=== PATIENT | female | born 1975 | race Hispanic/Latino ===

== ENCOUNTER 2019-08-07 05:37 | Observation (INO) | payer OTHER ==
[2019-08-05 10:07] LABS: EOSINOPHILS # (AUTO) 0.1 (0.0-0.4); EOSINOPHILS % 3.9 % (0.0-6.0); HEMATOCRIT 37.9 % (34.2-44.1); HEMOGLOBIN 12.6 g/dL (12.0-16.0); LYMPHOCYTES # (AUTO) 0.9 (1.0-3.2); MEAN CORPUSCULAR HEMOGLOBIN 30.6 pg (28-32); MEAN CORPUSCULAR HGB CONC 33.2 g/dL (31-35); MONOCYTES # (AUTO) 0.3 (0.2-0.8); MONOCYTES % 14.4 % (4.4-11.3); NEUTROPHILS # (AUTO) 0.6 (2.1-6.9); NEUTROPHILS % 34.1 % (38.7-80.0); PLATELET COUNT 331 x10e3/uL (140-360); RED BLOOD COUNT 4.12 x10e6/uL (3.6-5.1); RED CELL DISTRIBUTION WIDTH 12.9 % (11.7-14.4)
[2019-08-05 10:16] LABS: BLOOD UREA NITROGEN 13 mg/dL (7-26); BUN/CREATININE RATIO 19 (6-25); CALCIUM 10.2 mg/dL (8.4-10.2); CARBON DIOXIDE 26 mmol/L (22-29); CHLORIDE 105 mmol/L (98-107); CREATININE, SERUM 0.67 mg/dL (0.57-1.11); EST GLOMERULAR FILTRATION RATE > 60 ML/MIN (60-); GLUCOSE 120 mg/dL (74-118); SODIUM 140 mmol/L (136-145)
[2019-08-05 10:34] LABS: INR 0.92; PROTHROMBIN TIME 12.9 seconds (11.9-14.5)
[2019-08-05 10:35] LABS: PARTIAL THROMBOPLASTIN TIME 32.7 seconds (23.8-35.5)
--- NOTE | 2019-08-05 10:42 | Diagnostic Imaging Report ---
Exam: Chest radiograph Clinical History: Preoperative clearance Findings: The cardiomediastinal silhouette and lungs are normal. The regional skeleton and soft tissue are unremarkable. There is no evidence of pleural effusion or pneumothorax. Impression: No radiographic evidence of acute cardiopulmonary disease. Signed by: Dr. Da Manzanares MD on 08/05/2019 10:38 AM
[2019-08-05 12:11] LABS: EOSINOPHILS % (MANUAL) 3 % (0-7); LYMPHOCYTES % (MANUAL) 57 % (19-48); MONOCYTES % (MANUAL) 6 % (3.4-9.0); NEUTROPHILS % (MANUAL) 33 % (40-74); PLATELET ESTIMATE ADEQUATE; PLATELET MORPHOLOGY COMMENT NORMAL; RBC MORPHOLOGY COMMENT NORMAL
[2019-08-07] VITALS (7 sets, daily range): BP systolic 123–182; BP diastolic 69–86
[~2019-08-07] VITALS: Ht 154.9 cm; Wt 100.7 kg
[~2019-08-07 05:37] MED LIST: ALEVE220 M1 PO; ARMOUR THYROID60 MG PO; ESTRADIOL1 MG PO; FOLIC ACID1 MG PO; GABAPENTIN100 MG PO; GLYBURIDE-METF1 EACH PO; JANUMET XR 1001 EACH PO; LISINOPRIL2.5 MG PO; LOESTRIN FE 1-1 EACH PO; MELATONIN3 MG PO; METFORMIN HCL500 MG PO; METHOTREXATE2.5 MG PO; NABUMETONE500 MG PO; OMEPRAZOLE40 MG PO; PANTOPRAZOLE SO40 MG PO; PAROXETINE HCL20 MG PO; SIMVASTATIN20 MG PO; SYNTHROID PO; VICTOZA 2-0.6 MG/0.1 SC; XYZAL5 MG PO
--- OUTSIDE RECORDS SUMMARY | 2019-08-07 05:39 | XMS REPORT ---
Author Author [facility] Address Unknown Phone Unavailable Care Team Providers Care Healthcare Marketer Name Role Phone MIREYA LINDSEY Unavailable Unavailable Payers Payer Name Policy Type Policy Number Effective Date Expiration Date Problems This patient has no known problems. Allergies, Adverse Reactions, Alerts Allergy Name Allergy Type Status Severity Reaction(s) Onset Date Inactive Date Treating Clinician Comments Tetracyclines DA Active MO 2018-09-16 00:00:00 hydrocodone DA Active MO 2018-09-16 00:00:00 acetaminophen DA Active SV 2018-09-16 00:00:00 minocycline DA Active MO 2018-09-16 00:00:00 Medications This patient has no known medications. Results Test Description Test Time Test Comments Text Results Atomic Results Result Comments CHEST 2 VIEWS 2019-08-05 10:38:00 [facility] [address] [place] [address] Patient Name: HAYDEN CROOK MR #: [id number] : 1975 Age/Sex: 43/F Req #: [id number] Adm Physician: Ordered by: MIREYA LINDSEY MD Report #: [id number] Location: OR Room/Bed: Procedure: [id number] DX/CHEST 2 VIEWS Exam Date: 08/05/19 Exam Time: 939 REPORT STATUS: Signed Exam: Chest radiograph Clinical History: Preoperative alberta arance Findings: The cardiomediastinal silhouette and lungs are normal. The regional skeleton and soft tissue are unremarkable. There is no evidence of pleural effusion or pneumothorax. Impression: No radiographic evidence of acute cardiopulmonary disease. Signed by: Dr. Da Manzanares MD on 08/05/2019 10:38 AM Dictated By: YULY MANZANARES MD 1038 Transcribed By: NILSA on 08/05/19 1038 COPY TO: MIREYA LINDSEY MD SURGICAL SPECIMENS 2019-02-01 15:28:00 RUN DATE: 02/01/19 [facility] *LIVE* PAGE 1 RUN TIME: 1529 Specimen Inquiry RUN USER: INTERFACE PATIENT: HAYDEN CROOK LOC: EDDIE #: [id number] AGE/SX: 43/F ROOM: RE01/29/19REG DR: Juan Carlos Medrano MD : 75 BED: DIS: STATUS: PRE REF TLOC: SPEC #: [id number] RECD: 01/30/19 STATUS: YANNICK BIANCHI #: [id number] SUSANNAH: 01/30/[address]: Juan Carlos Medrano MD ENTERED: 02/01/19 SP TYPE: SURG SPEC OTHR DR: No Primary or Family PhysicianORDERED: LEVEL 4 CODES: [id number] - BREAST, NOS COPIES TO: No Primary or Family Physician Juan Carlos Medrano MD [address] [place] [address] [address] [place] [address] PROCEDURES: LEVEL 4 (Incomplete) TISSUES: 1. BREAST, NOS - Breast, left, 4:00, +calc., core bx. 2. BREAST, NOS - Breast, left, 4:00, -calc., core bx. FINAL DIAGNOSIS Breast, left, 4:00, +/-calc., core bx.: Complex sclerosing papillary lesion with associated microcalcifications and fibrocystic changes. GROSS AND MICROSCOPIC GROSS EXAMINATION: Received is/are the specimen/s designated with the appropriate dimensions and block designation: 1. Breast, left, 4:00, +calc., core bx.: 4 segments of pink-lloyd tissue, measuring up to 0.9 cm. in greatest dimension each (A) jury 2. Breast, left, 4:00, -calc., core bx.: Multiple segments of pink-lloyd tissue, measuring up to 1.5 cm. in greatest dimension each (B). MICROSCOPIC EXAMINATION: Sections reveal complex sclerosing papillary lesion with associated microcalcifications and fibrocystic changes. No ADH, DCIS, LCIS, or invasive carcinoma is identified. POST-OP DIAGNOSIS TRIMARKR CONTINUED ON NEXT PAGE RUN DATE: 02/01/19 [facility] *LIVE* PAGE 2 RUN TIME: 1529 Specimen Inquiry RUN USER: INTERFACE -------SPEC #: [id number] PATIENT: HAYDEN CROOK #[id number] (Continued) PRE-OP DIAGNOSIS Indeterminate calc's REVIEWED BY: XS Signed SIGNATURE ON FILE Vani Curry MD 02/01/19 1528 END OF REPORT SURGICAL SPECIMENS 2018-09-24 09:12:00 RUN DATE: 09/24/18 [facility] *LIVE* PAGE 1 RUN TIME: 912 Specimen Inquiry RUN USER: INTERFACE PATIENT: HAYDEN CROOK LOC: SHELIA U #: [id number] AGE/SX: 42/F ROOM: RE09/18/18REG DR: Juan Carlos Medrano MD : 75 BED: DIS: STATUS: [facility] [place] TLOC: SPEC #: [id number] RECD: 09/20/18 STATUS: YANNICK BIANCHI #: [id number] SUSANNAH: 09/20/[address]: Juna Carlos Medrano MD ENTERED: 09/23/18 SP TYPE: SURG SPEC OTHR DR: Shana Sue MD ORDERED: LEVEL 4 CODES: [id number] - SOFT TISSUES, N [id number] - UTERUS, NOS COPIES TO: Juan Carlos Medrano MD [address] [place] [address] [address] [place] [address] Shana Sue MD [address] [place], [place] [address] PROCEDURES: GM LEVEL 4 (Incomplete) TISSUES: 1. SOFT TISSUES, NOS - Soft tissue, bladder, segment 2. UTERUS, NOS - Uterus, cervix, fallopian tube ovary FINAL DIAGNOSIS Soft tissue, bladder, segment: Endometriosis. Uterus, cervix, bilateral fallopian tubes, left ovary, excision: Chronic cervicitis, squamous metaplasia, nabothian cysts; secretory endometrium, leiomyomata, adenomyosis, fibrous serosal adhesions; left fallopian tube with no atypical cellular features; left ovary with corpus luteum cyst, physiologic cysts and corpora albicantia. GROSS AND MICROSCOPIC GROSS EXAMINATION: Received in formalin labeled endometriosis of the bladder is a 0.7 cm white-lloyd tissue fragment (A). Received in formalin labeled uterus, cervix, left fallopian tube and ovary is a 72 g 7.5 x 5.3 x 3.7 cm uterus with a 3.1 cm in diameter cervix with purple lloyd ectocervix and 0.6 cm cervical os. The serosal surface is purple lloyd and smooth. There is an attached 6 cm in length 1 cm in diameter fallopian tube with fimbriated end and a 3.2 cm in greatest dimension white-lloyd cerebriform ovary is partially cystic. The endometrium is lloyd and lush measuring up to 0.4 cm. The myometrium measures up to 1.2 cm and CONTINUED ON NEXT PAGE ---RUN DATE: 09/24/18 [facility] *LIVE* PAGE 2 RUN TIME: 912 Specimen Inquiry RUN USER: INTERFACE SPEC #: [id number] PATIENT: HAYDEN CROOK #[id number] (Continued) GROSS AND MICROSCOPIC (Continued) contains white whirled nodules measuring up to 1 cm. Submitted (B)-(C) cervix (D)-(G) corpus uteri (H)- (I) left adnexa. MICROSCOPIC EXAMINATION: Sections of the soft tissue from the bladder reveal endometrial glands and stroma with mixed inflammation and hemosiderin laden macrophages. The ectocervical mucosa has normal maturation. The endocervical mucosa has nabothian cysts, areas of squamous metaplasia and associated chronic inflammation. The endometrial glands are dilated with eosinophilic secretions. Benign endometrial glands and stroma are present in the myometrium. The myometrial nodules are composed of bundles of smooth muscle cells with no significant nuclear atypia or mitotic activity. The serosa shows fibrous adhesions. The left fallopian tube is unremarkable. The left ovary shows a corpus luteum cyst, multiple small physioligic cysts and corpora albicantia. POST-OP DIAGNOSIS Endometriosis of bladder, uterine fibroids, left paratubal cyst, adenomyosi PRE-OP DIAGNOSIS Polycystic ovary syndrome, menorrhagia, pelvic pain, adenomyosis, fibroids Signed SIGNATURE ON FILE Rundell,Tc Darrell DE 09/24/18 0912 - END OF REPORT
[2019-08-07] MEDS ORDERED: BUPIVACAINE 0.5%/EPI 30 ML SDV INJ ONE (06:39)
[2019-08-07] MEDS ORDERED: THROMBIN FOR SOLN 5,000 UNIT VIAL ONE ×2 (06:40→07:49)
[2019-08-07] MEDS ORDERED: BACITRACIN 50,000 UNIT VIAL ONE (06:40)
[2019-08-07] MEDS ORDERED: CEFAZOLIN SOD 1 GM/NS 50ML 100 ML IV ONE (06:54)
[2019-08-07] MEDS ORDERED: LIDOCAINE HCL (LTA) 4 ML SOLN ONE (06:59)
[2019-08-07] MEDS ORDERED: ACETAMINOPHEN 1000 MG/100 ML 100 ML IV ONE (06:59)
[2019-08-07] MEDS ORDERED: IBUPROFEN 800MG/ 250ML 250 ML IV ONE (06:59)
--- NOTE | 2019-08-07 07:10 | NUR ---
SPIRITUAL CARE - Pre-Surgery Assessment: Pt in bed. Pt's and mother at bedside. Pt reported supportive attention from family and friends. Intervention: I provided pastoral presence, hospitality, sympathetic listening, and prayer. I acquainted pt with availability of panel machine setter while hospitalized. Outcome: Pt expressed appreciation for visit. No need for follow up indicated at this time. BO LEWIS [employer] Analyst Spiritual Care Department O: [phone] Pager: [phone] ([phone] number calling from)
[2019-08-07] MEDS ORDERED: BUPIVACAINE HCL 0.5% INJ 30 ML VIAL INJ ONE (07:49)
[2019-08-07] MEDS ORDERED: PROMETHAZINE HCL (IM) 25 MG/ML VIAL IM PRN (09:30)
[2019-08-07] MEDS ORDERED: ONDANSETRON HCL INJ 2MG/ML 2ML 2 MG/ML VIAL IV PRN (09:30)
[2019-08-07] MEDS ORDERED: OXYCODONE/ACETAMINOPHEN 5-325 1 EACH TABLET PO PRN (09:30)
[2019-08-07] MEDS ORDERED: MAGNESIUM/ALUMINUM/SIMETHICONE 30 ML UDC PO PRN (09:30)
[2019-08-07] MEDS ORDERED: NABUMETONE 1000 MG PO PRN (09:30)
[2019-08-07] MEDS ORDERED: CEPACOL SORE THROAT LOZENGES PO PRN (09:30)
[2019-08-07] MEDS ORDERED: HYDROMORPHONE 2MG/ML 2 MG/ML ML IV PRN (09:30)
[2019-08-07] MEDS ORDERED: MORPHINE SULFATE 5 MG/ML VIAL IM PRN (09:30)
[2019-08-07] MEDS ORDERED: ZOLPIDEM TARTRATE 5 MG TAB PO PRN (09:30)
[2019-08-07] MEDS ORDERED: ACETAMINOPHEN 325 MG TAB PO PRN (09:30)
[2019-08-07] MEDS ORDERED: CARISOPRODOL 350 MG TAB PO PRN (09:30)
[2019-08-07] MEDS ORDERED: MORPHINE SULFATE INJ 4 MG/ML INJ 1ML IM PRN (10:00)
[2019-08-07] MEDS ORDERED: LACTATED RINGER'S 1,000 ML IV SCH (10:00)
--- NOTE | 2019-08-07 10:01 | NUR ---
RECEIVED REPORT FROM CHERYL IN PACU AWAITING FOR PT TO ARRIVE TO FLOOR
--- NOTE | 2019-08-07 10:15 | NUR ---
RECEIVED PT TO FLOOR [id number] PT IS DENIES PAIN. STATES DISCOMFORT TO NECK, STATES NECK COLLAR IS TOO BIG CALLED RECOVERY TO TRY AND GET A DIFFERENT SIZE AT THIS TIME DRESSING TO THE ANTERIOR NECK IS DRY AND INTACT WITH HEMOVAC IN PLACE SECURED TO GOWN LEFT WRIST AREA IS COVERED WITH DRESSING AND ELIEZER THAT IS ALSO CLEAN AN DRY FINGERS AND WARM TO THE TOUCH , SENSATION TO ALL FINGERS REPORTED PT HAS A RIGHT HAND 20 WITH LR AT 100CCHR. SITE IS CLEAN AND DRY SED AND COMPRESSION STOCKINGS PRESENT WILL CONTINUE TO MONITOR PT CLOSELY, SIDE RAILSX2, BED WHEELS LOCKED INSTRUCTED TO CALL IF NEEDING TO GET UP FAMILY IS AT BEDSIDE
[2019-08-07] MEDS ORDERED: PNEUMOCOCCAL VACCINE POLYVALENT 23 MCG/0.5 ML VIAL IM SCH (10:49)
[2019-08-07] MEDS ORDERED: INFLUENZA VIRUS VAC SPLIT INJ 0.5 ML SYR IM SCH (10:49)
--- NOTE | 2019-08-07 11:31 | NUR ---
REMOVING HYDROCODONE FROM ALLERGIES . PT STATES SHE HAS HAD THIS MEDICINE BEFORE AND IS FINE TAKING IT
--- NOTE | 2019-08-07 12:30 | NUR ---
pt voided into toilet after sx
--- NOTE | 2019-08-07 13:14 | Operative Report ---
DATE OF PROCEDURE: 08/07/2019 SURGEON: Balta Rizo MD PREOPERATIVE DIAGNOSES: 1. 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 2. Left carpal tunnel syndrome. POSTOPERATIVE DIAGNOSES: 1. 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 2. Left carpal tunnel syndrome. PROCEDURES: 1. C5-6 anterior cervical diskectomy and allograft fusion, 16565. 2. Preparation of MTF corticocancellous allograft, 69068. 3. C5-6 anterior cervical plating with Synthes ZPN plate, [id number]. 4. Left carpal tunnel release. ANESTHESIA: General. INDICATIONS: The patient is a 43-year-old woman with rheumatoid arthritis, who presents with C5-6 spondylosis and disk herniation with cervical myelopathy and superimposed left carpal tunnel syndrome. She was taken to the operating room for simultaneous anterior cervical decompression and fusion and left carpal tunnel release. PROCEDURE IN DETAIL: After induction of general anesthesia, the patient was placed on the operating table in supine position. The right side of neck was prepped and draped in sterile fashion. The fluoroscopic C-arm was positioned in cross-table lateral orientation. A small transverse incision was created on the right side of neck superimposed on the C5-6 disk space as determined by fluoroscopy. The platysma was divided in line with the incision. A subplatysmal dissection was carried out and avascular plane of dissection was developed medial to the sternocleidomastoid muscle and was followed medial to the carotid sheath to the anterior border of cervical spine. The deep cervical fascia was opened. The esophagus was retracted to the left. The attachments of longus colli muscles to the anterolateral aspects of vertebral bodies of C5 and C6 were divided. The anterior longitudinal ligament was resected. [place] posts were inserted in C5 and C6, and the [place] distractor was used to distract the disk space. The anterior annulus of this was incised with a #11 blade. The contents of the disk were thoroughly evacuated with angled curettes and pituitary rongeurs. The posterior osteophytes were meticulously drilled with a 2 mm cutting bur on a high-speed drill until they were completely removed. The posterior annulus of the disk, a large amount of herniated disk material, and the posterior longitudinal ligament were resected layer by layer until the dura was fully exposed and decompressed. The medial aspects of the uncinate processes were resected bilaterally to further expose any compressed origins of the corresponding nerve roots. After satisfactory decompression had been achieved, the endplates were prepared for fusion. The disk space was sized and found to be 7 mm in height. A piece of MTF corticocancellous allograft measuring 7 mm in thickness was selected and was loaded onto the corresponding Synthes ZPN plate. The construct was inserted into the C5-6 disk space under distraction and fluoroscopic guidance. The distraction was released and distraction posts were removed. The plate was screwed to the endplates of C5 and C6 with two pairs of 14 x 4.35 mm screws. All screws were locked. The wound was copiously irrigated with bacitracin solution. Hemostasis was achieved with bone wax. A small Hemovac drain was placed over the plate and brought out through a separate stab incision. The platysma was closed with 3-0 Vicryl sutures. The skin was closed with 4-0 Monocryl sutures in subcuticular fashion. Steri-Strips and dressing were applied. The drapes were removed. The left arm was abducted over a hand table. The left hand, wrist, and forearm were prepped and draped circumferentially in sterile fashion. The tourniquet was inflated to 250 mmHg. A small midline incision was created over the median palmar crease of the hand just distal to the distal flexor crease of the wrist. Subcutaneous fat was divided. The transverse carpal ligament was incised with a #15 C blade until the underlying median nerve came into view. As the oceanographer assistant retracted the skin edges, the transverse carpal ligament was divided proximally and distally until the full length of the median nerve was exposed and decompressed within the carpal tunnel. The point of maximal compression of nerve appeared to be about 2 cm distal to the distal flexor crease of the wrist, where the ligament was at its thickest. More distally, the recurrent motor branch of the nerve was preserved within this fat pad. The wound was irrigated with bacitracin solution. Meticulous hemostasis was secured. Retractor was removed. The subcutaneous layer was closed with 3-0 Vicryl sutures and the skin was closed with 3-0 nylon suture in a horizontal mattress fashion. The wound was infiltrated with lidocaine. The hand was wrapped after the tourniquet had been deflated. The patient was awakened, extubated, and taken to the postanesthesia care in stable condition. No intraoperative complications were encountered. Estimated blood loss was 20 mL. Balta Rizo MD PP/JOSE C /[id number]
[2019-08-07] MEDS ORDERED: FENTANYL CITRATE/PF 100MCG/2 ML INJ ONE (15:05)
[2019-08-07] MEDS ORDERED: MIDAZOLAM HCL 2 MG/2 ML VIAL ONE (15:05)
[2019-08-07] MEDS: CEFAZOLIN SOD 1 GM/NS 50ML 50 ML IV SCH (16:12)
[2019-08-07] MEDS: METFORMIN HCL 500 MG TAB PO SCH (16:30)
[2019-08-07] MEDS ORDERED: PROPOFOL IV EMULSION 10 MG/ML 20 ML VIAL ONE (18:44)
[2019-08-07] MEDS ORDERED: DEXAMETHASONE SOD PHOS INJ 4 MG/ML VIAL ONE (18:44)
[2019-08-07] MEDS ORDERED: SEVOFLURANE INHAL SOLN 250 ML PEN BTL ONE (18:44)
[2019-08-07] MEDS ORDERED: ROCURONIUM BROMIDE 10 MG/ML 5ML VIAL ONE (18:44)
[2019-08-07] MEDS ORDERED: ONDANSETRON HCL INJ 2MG/ML 2ML 2 MG/ML VIAL ONE (18:44)
[2019-08-07] MEDS ORDERED: NEOSTIGMINE 5 MG/5ML SYR ONE (18:44)
[2019-08-07] MEDS ORDERED: GLYCOPYRROLATE INJ 1MG/ 5 ML SYR ONE (18:44)
[2019-08-07] MEDS ORDERED: LIDOCAINE HCL 2% LOCAL INJ 5 ML SDV VIAL INJ ONE (18:44)
[2019-08-07] MEDS ORDERED: PAROXETINE HCL 12.5 MG TABSR PO SCH (21:00)
[2019-08-07] MEDS ORDERED: ESTRADIOL 1 MG TAB PO SCH (21:00)
[2019-08-07] MEDS ORDERED: GABAPENTIN 100 MG CAP PO SCH (21:00)
[2019-08-07] MEDS ORDERED: LISINOPRIL 20 MG TAB PO SCH (21:00)
[2019-08-07] MEDS ORDERED: Liraglutide (Victoza 2-Pak) 1.2 MG SC SCH (21:00)
[2019-08-07] MEDS ORDERED: MELATONIN 5 MG TABLET PO SCH (21:00)
[2019-08-07] MEDS ORDERED: ESTRACE PO SCH (21:00)
[2019-08-08] MEDS: CEFAZOLIN SOD 1 GM/NS 50ML 50 ML IV SCH ×2 (00:24→08:58)
[2019-08-08 00:32] VITALS: BP 122/80
[2019-08-08 04:00] VITALS: BP 108/55
[2019-08-08] MEDS ORDERED: LEVOTHYROXINE SODIUM 50 MCG TAB PO SCH (06:00)
--- NOTE | 2019-08-08 06:17 | NUR ---
Patient is laying supine with HOB slightly elevated. Reports feeling better, denies pain at this time. Neck collar in place, Hemovac patency verified. Has scant serosanguineous on tubing only, device has not been filled. Left hand wound dressing is C/D/I. Right IV patent. Patient was able to ambulate with last night. SCD's and [place] were used, but patient took them off to give her legs a break. at bedside. Patient's bed wheels are locked and call light is within reach.
[2019-08-08 07:27] VITALS: BP 116/61
[2019-08-08] MEDS ORDERED: PANTOPRAZOLE SOD 40 MG TABEC PO SCH (07:30)
[2019-08-08] MEDS ORDERED: ONDANSETRON HCL 4 MG ORAL DISINTEGRATING TAB PO PRN (08:30)
[2019-08-08] MEDS: METFORMIN HCL 500 MG TAB PO SCH (08:56)
[2019-08-08] MEDS ORDERED: LORATADINE 10 MG TAB PO SCH (09:00)
[2019-08-08] MEDS ORDERED: ESTRADIOL 1 MG TAB PO SCH (09:00)
[2019-08-08] MEDS ORDERED: FOLIC ACID 1 MG TAB PO SCH (09:00)
[2019-08-08] MEDS ORDERED: PAROXETINE HCL 12.5 MG TABSR PO SCH (09:00)
--- NOTE | 2019-08-08 09:01 | Diagnostic Imaging Report ---
EXAMINATION: C-SPINE 2 VIEWS AP LATERAL INDICATION: Postoperative COMPARISON: None FINDINGS: AP and lateral images of the cervical spine demonstrate postoperative findings of anterior cervical discectomy and fusion at C5-6. Alignment appears anatomic. No unexpected fracture. Vertebral body heights are maintained. Mild thickening of the prevertebral soft tissues is likely postoperative. Surgical drain projects over the anterior neck. The partially visualized lung apices appear clear. IMPRESSION: Anatomic alignment status post anterior cervical discectomy and fusion at C5-6 Signed by: Joseline Armando MD on 08/08/2019 8:58 AM
[2019-08-08 09:15] VITALS: BP 116/61
--- NOTE | 2019-08-08 10:31 | NUR ---
PATIENT'S DRESSING AND HEMOVAC REMOVED, STERI-STRIP INTACT, PATIENT DENIES PAIN AND/OR DISCOMFORT.
[2019-08-08] MEDS ORDERED: NORCO 7.5-3251 EACH PO (10:52)
== END 2019-08-08 11:45 | disposition home or self-care (01) ==
LOC: OR 05:37 → PACU V 09:21 → MED/SURG 10:17
PROVIDERS: ADMIT Neurological Surgery; ATTEND Neurological Surgery
DX: M50.022 Cervical disc disorder at C5-C6 level with myelopathy (principal); M47.12 Other spondylosis with myelopathy, cervical region; G56.02 Carpal tunnel syndrome, left upper limb; Z88.6 Allergy status to analgesic agent; Z88.8 Allergy status to other drugs, medicaments and biological substances; E11.9 Type 2 diabetes mellitus without complications; E66.9 Obesity, unspecified; Z68.41 Body mass index [BMI] 40.0-44.9, adult; K27.9 Peptic ulcer, site unspecified, unspecified as acute or chronic, without hemorrhage or perforation; M19.90 Unspecified osteoarthritis, unspecified site; M06.9 Rheumatoid arthritis, unspecified; M79.7 Fibromyalgia; I10 Essential (primary) hypertension; Z01.812 Encounter for preprocedural laboratory examination; Z79.84 Long term (current) use of oral hypoglycemic drugs
CPT/HCPCS: 20931; 22551; 22845; 36415 ×3; 64721; 71046; 72040; 77003; 80048; 82948 ×2; 85025; 85610; 85730; 86850; 86900; 88304; 93005; G0378 ×2; J0131; J0690 ×2; J1100; J2001; J2250; J2270; J2405; J2704; J3010; J3490; J7121; S0164 ×2

== ENCOUNTER → 2019-09-02 | Outpatient (CLI) | payer OTHER ==
[~2019-09-02] MED LIST changes: +NORCO 7.5-3251 EACH PO
--- NOTE | 2019-09-03 09:52 | Diagnostic Imaging Report ---
EXAMINATION: SPINE CERVICAL AP LAT FLEX EXT INDICATION: Postoperative COMPARISON: None FINDINGS: AP and lateral cervical spine radiographs in neutral, flexion and extension were obtained. The patient is status post anterior cervical discectomy and fusion at C5-6. Alignment appears anatomic and unchanged on flexion and extension views. Vertebral body heights are maintained. No acute osseous injury. Hardware appears intact. Interval decrease in postoperative prevertebral soft tissue thickening. The minimally visualized lung apices appear clear. IMPRESSION: Anatomic alignment status post anterior cervical discectomy and fusion at C5-6. Signed by: Joseline Armando MD on 09/03/2019 9:48 AM
== END ==
LOC: RAD 16:23
PROVIDERS: ATTEND Neurological Surgery
DX: M50.20 Other cervical disc displacement, unspecified cervical region (principal); M43.22 Fusion of spine, cervical region
CPT/HCPCS: 72050

== ENCOUNTER 2023-02-01 06:50 | Observation (INO) | payer OTHER ==
[2023-01-31 13:38] LABS: EOSINOPHILS % 1.7 % (0.0-6.0); HEMATOCRIT 41.1 % (34.2-44.1); HEMOGLOBIN 13.8 g/dL (12.0-16.0); LYMPHOCYTES % 56.1 % (18.0-39.1); MEAN CORPUSCULAR HEMOGLOBIN 31.8 pg (28-32); MEAN CORPUSCULAR HGB CONC 33.6 g/dL (31-35); MEAN CORPUSCULAR VOLUME 94.7 fL (81-99); MONOCYTES # (AUTO) 0.2 (0.2-0.8); NEUTROPHILS # (AUTO) 0.6 (2.1-6.9); NEUTROPHILS % 32.2 % (38.7-80.0); PLATELET COUNT 368 x10e3/uL (140-360); RED BLOOD COUNT 4.34 x10e6/uL (3.6-5.1); RED CELL DISTRIBUTION WIDTH 12.9 % (11.7-14.4)
[2023-01-31 14:02] LABS: INR 0.86; PROTHROMBIN TIME 12.2 seconds (11.9-14.5)
[2023-01-31 14:03] LABS: PARTIAL THROMBOPLASTIN TIME 34.5 seconds (23.8-35.5)
[2023-01-31 14:08] LABS: ANION GAP 14.8 mmol/L (8-16); CALCIUM 10.7 mg/dL (8.4-10.2); CREATININE, SERUM 0.68 mg/dL (0.57-1.11); POTASSIUM 3.8 mmol/L (3.5-5.1)
[~2023-02-01] VITALS: Ht 157.5 cm; Wt 94.3 kg
[~2023-02-01 06:50] MED LIST changes: +CEFAZOLIN SODIUM 2 GM ONE; +CLEOCIN HCL300 MG PO; +CLEOCIN40 GM TOP; +CYCLOBENZAPRINE5 MG PO; +GLYCOPYRROL; +GLYCOPYRROLATE2 MG PO; +HYDROCHLOROTHIA25 MG PO; +LACTATED RINGER'S 1,000 ML ONE; +LIPITOR20 MG PO; +MULTI-VITAMIN1 EACH PO; +SPIRONOLACTONE25 MG PO; +VITAMIN B-121000 MCG PO; +XELJANZ XR11 MG PO
[2023-02-01] MEDS ORDERED: SUGAMMADEX SODIUM 200 MG/2 ML VIAL IV ONE (06:54)
[2023-02-01] MEDS ORDERED: ACETAMINOPHEN 1000 MG/100 ML 100 ML IV ONE (06:54)
[2023-02-01] MEDS ORDERED: LIDOCAINE 1% W/EPINEPHRINE 20 ML VIAL ONE (07:02)
[2023-02-01] MEDS ORDERED: Vancomycin IV 1 GM VIAL ONE (07:02)
[2023-02-01] MEDS ORDERED: THROMBIN FOR SOLN 5,000 UNIT VIAL ONE (07:02)
[2023-02-01] MEDS ORDERED: MORPHINE SULFATE 5 MG/ML VIAL IM PRN (09:45)
[2023-02-01] MEDS ORDERED: ACETAMINOPHEN 325 MG TAB PO PRN (09:45)
[2023-02-01] MEDS ORDERED: PROMETHAZINE HCL (IM) 25 MG/ML VIAL IM PRN (09:45)
[2023-02-01] MEDS ORDERED: ONDANSETRON HCL INJ 2MG/ML 2ML 2 MG/ML VIAL IV PRN (09:45)
[2023-02-01] MEDS ORDERED: ZOLPIDEM TARTRATE 5 MG TAB PO PRN (09:45)
[2023-02-01] MEDS: LACTATED RINGER'S 1,000 ML IV SCH ×2 (09:45→16:51)
[2023-02-01] MEDS ORDERED: CARISOPRODOL 350 MG TAB PO PRN (09:45)
[2023-02-01] MEDS ORDERED: TIZANIDINE HCL 4 MG TAB PO PRN (09:45)
[2023-02-01] MEDS ORDERED: MAGNESIUM/ALUMINUM/SIMETHICONE 30 ML UDC PO PRN (09:45)
[2023-02-01] MEDS ORDERED: ULTRAM 50MG50 MG PO (09:46)
[2023-02-01] MEDS ORDERED: TIZANIDINE HCL4 M1 PO (09:48)
[2023-02-01] MEDS ORDERED: FENTANYL CITRATE/PF 100MCG/2 ML INJ ONE (12:17)
[2023-02-01] MEDS ORDERED: MIDAZOLAM HCL 2 MG/2 ML VIAL ONE (12:17)
[2023-02-01 13:06] VITALS: BP 123/79
[2023-02-01] MEDS ORDERED: POVIDONE IODINE 0.05% 0.05 % ML PO ONE (13:33)
[2023-02-01] MEDS ORDERED: PROPOFOL IV EMULSION 10 MG/ML 20 ML VIAL ONE (13:33)
[2023-02-01] MEDS ORDERED: LIDOCAINE HCL 2% LOCAL INJ 5 ML SDV VIAL INJ ONE (13:33)
[2023-02-01] MEDS ORDERED: ONDANSETRON HCL INJ 2MG/ML 2ML 2 MG/ML VIAL ONE (13:33)
[2023-02-01] MEDS ORDERED: SEVOFLURANE INHAL SOLN 250 ML PEN BTL ONE (13:33)
[2023-02-01] MEDS ORDERED: DIPHENHYDRAMINE HCL INJ 50 MG/ML VIAL ONE (13:33)
[2023-02-01] MEDS ORDERED: DEXAMETHASONE SOD PHOS INJ 4 MG/ML SDV ONE (13:33)
[2023-02-01] MEDS ORDERED: ROCURONIUM BROMIDE 10 MG/ML 5ML VIAL IV ONE (13:33)
[2023-02-01 13:57] VITALS: BP 123/79
[2023-02-01 15:59] VITALS: BP 107/55
[2023-02-01] MEDS: METFORMIN HCL 500 MG TAB PO SCH (16:51)
[2023-02-01 20:00] VITALS: BP 114/72
[2023-02-01 21:00] VITALS: BP 114/72
[2023-02-01] MEDS ORDERED: LIRAGLUTIDE 1.2 MG SC SCH (21:00)
[2023-02-01] MEDS ORDERED: NON-FORMULARY MEDICATION (Cyclobenzaprine Hcl (Flexeril) 5 MG) PO SCH (21:00)
[2023-02-01] MEDS ORDERED: GABAPENTIN 300 MG CAP PO SCH (21:00)
[2023-02-01] MEDS ORDERED: CYCLOBENZAPRINE HCL 10 MG TAB PO SCH (21:00)
[2023-02-01] MEDS: MELATONIN 5 MG TABLET PO SCH (21:00)
[2023-02-01] MEDS: TRAMADOL HCL 50 MG TAB PO PRN (21:56)
[2023-02-02] VITALS: BP 105/63
[2023-02-02] MEDS: LACTATED RINGER'S 1,000 ML IV SCH (02:22)
[2023-02-02 04:00] VITALS: BP 98/59
[2023-02-02 08:00] VITALS: BP 111/72
[2023-02-02] MEDS: METFORMIN HCL 500 MG TAB PO SCH (08:00)
[2023-02-02 08:31] VITALS: BP 111/72
[2023-02-02] MEDS ORDERED: LORATADINE 10 MG TAB PO SCH (09:00)
[2023-02-02] MEDS ORDERED: SPIRONOLACTONE 25 MG TAB PO SCH (09:00)
[2023-02-02] MEDS ORDERED: NON-FORMULARY MEDICATION (Glycopyrrolate 1 MG) PO SCH (09:00)
[2023-02-02] MEDS ORDERED: GLYCOPYRROLATE 1 MG TAB PO SCH (09:00)
[2023-02-02] MEDS ORDERED: MULTIVITAMINS/MINERALS TAB PO SCH (09:00)
[2023-02-02] MEDS ORDERED: CYANOCOBALAMIN 1,000 MCG TAB PO SCH (09:00)
[2023-02-02] MEDS ORDERED: HYDROCHLOROTHIAZIDE 25 MG TAB PO SCH (09:00)
[2023-02-02] MEDS ORDERED: PAROXETINE HCL 20 MG TAB PO SCH (09:00)
[2023-02-02] MEDS ORDERED: FOLIC ACID 1 MG TAB PO SCH (09:00)
[2023-02-02] MEDS ORDERED: CLINDAMYCIN HCL 150 MG CAP PO SCH (09:00)
[2023-02-02] MEDS ORDERED: ATORVASTATIN 20 MG TAB PO SCH (09:00)
[2023-02-02] MEDS ORDERED: PANTOPRAZOLE SOD 40 MG TABEC PO SCH (09:00)
[2023-02-02] MEDS ORDERED: TOFACITINIB CITRATE PO SCH (09:00)
[2023-02-02] MEDS ORDERED: ESTRADIOL 0.5 MG TAB PO SCH (09:00)
[2023-02-02] MEDS: TRAMADOL HCL 50 MG TAB PO PRN (09:02)
[2023-02-02] MEDS ORDERED: ONDANSETRON HCL 4 MG ORAL DISINTEGRATING TAB PO PRN (10:30)
== END 2023-02-02 10:53 | disposition home or self-care (01) ==
LOC: OR 06:50 → PACU V 09:37 → MED/SURG3 12:33
PROVIDERS: ADMIT Neurological Surgery; ATTEND Neurological Surgery
DX: M51.17 Intervertebral disc disorders with radiculopathy, lumbosacral region (principal); M06.9 Rheumatoid arthritis, unspecified; E11.9 Type 2 diabetes mellitus without complications; E66.9 Obesity, unspecified; Z71.3 Dietary counseling and surveillance; Z71.89 Other specified counseling; Z71.82 Exercise counseling; Z88.6 Allergy status to analgesic agent; Z88.1 Allergy status to other antibiotic agents; Z01.810 Encounter for preprocedural cardiovascular examination; Z01.812 Encounter for preprocedural laboratory examination; Z01.818 Encounter for other preprocedural examination; Z20.822 Contact with and (suspected) exposure to COVID-19; Z79.1 Long term (current) use of non-steroidal anti-inflammatories (NSAID); Z79.84 Long term (current) use of oral hypoglycemic drugs; Z79.899 Other long term (current) drug therapy; Z68.38 Body mass index [BMI] 38.0-38.9, adult
CPT/HCPCS: 0223U; 36415 ×3; 63030; 71046; 72020; 80048; 82948 ×2; 85025; 85610; 85730; 86850; 86900; 88304; 88311; 93005; G0378 ×2; J0131; J0690 ×2; J1100; J1200; J2001; J2250; J2405; J2704; J3010; J3370; J7121 ×2